=== PATIENT | male | born 1970 | race Caucasian/White ===

== ENCOUNTER 2019-11-16 07:52 | Outpatient (CLI) | payer OTHER, SELFPAY ==
--- NOTE | ~2019-11-16 | US_ITS ---
US right upper quadrant INDICATION: Right upper quadrant abdominal pain PROCEDURE: Realtime right upper abdominal ultrasound. COMPARISON: No prior studies for comparison. FINDINGS: The pancreas is normal without focal mass or pancreatic ductal dilation. Liver echotexture is normal without focal mass or intrahepatic biliary dilatation. There is normal directional flow i n the portal vein. The gallbladder is normal without stones, gallbladder wall thickening or pericholecystic fluid. Comm on bile duct measures 5.3 mm. No sonographic Lcement's sign. IMPRESSION: 1: Unremarkable limited abdominal ultrasound. Reviewed, dictated and finalized at location A.
== END 2019-11-16 07:53 | disposition home or self-care (01) ==
PROVIDERS: PCP Internal Medicine; Visit Provider Internal Medicine
DX: R10.11 Right upper quadrant pain (principal)
CPT/HCPCS: 76705

== ENCOUNTER 2020-05-17 10:18 | Outpatient (CLI) | payer OTHER, SELFPAY ==
[2020-05-17 11:19] LABS: Alanine Aminotransferase 30 U/L (16-63); Albumin Level 3.9 g/dL (3.4-5.0); Alkaline Phosphatase 70 U/L (46-116); Anion Gap 6 mmol/L (8-16); Aspartate Amino Transferase 13 U/L (15-37); Bilirubin,Total 0.3 mg/dL (0.00-1.00); Blood Urea Nitrogen 14 mg/dL (7-18); Calcium 9.3 mg/dL (8.5-10.1); Carbon Dioxide 31 mmol/L (21-32); Chloride 102 mmol/L (98-108); Estimated Glomerular Filt Rate > 60; Glucose 91 mg/dL (70-99); Osmolality Calculated 288 mOsm/kg (285-295); Potassium 4.7 mmol/L (3.5-5.1); Sodium 139 mmol/L (136-145); Total Protein 7.5 g/dL (6.4-8.2)
== END 2020-05-17 10:19 | disposition home or self-care (01) ==
LOC: CHSLAB 10:20
PROVIDERS: PCP Internal Medicine; Visit Provider Internal Medicine
DX: I10 Essential (primary) hypertension (principal)
CPT/HCPCS: 36415; 80053

== ENCOUNTER 2021-05-08 16:07 | Outpatient (CLI) | payer OTHER, SELFPAY ==
[2021-05-08 18:23] LABS: Influenza A QL RT-PCR Negative (Negative); Influenza B QL RT-PCR Negative (Negative); SARS-CoV-2 RNA PCR Negative (Negative)
== END 2021-05-08 16:08 | disposition home or self-care (01) ==
LOC: CHSLAB 16:11
PROVIDERS: PCP Internal Medicine; Visit Provider Internal Medicine
DX: R05.9 Cough, unspecified (principal); J02.9 Acute pharyngitis, unspecified; Z20.822 Contact with and (suspected) exposure to COVID-19
CPT/HCPCS: 87502; C9803; U0003; U0005

== ENCOUNTER 2021-11-17 11:32 | Outpatient (CLI) | payer OTHER, SELFPAY ==
[2021-11-17 11:48] LABS: Basophils Absolute Auto 0.05 K/mm3 (0.00-0.10); Basophils Percent Auto 0.7 % (0.0-1.0); Eosinophils Absolute Auto 0.19 K/mm3 (0.02-0.50); Eosinophils Percent Auto 2.6 % (1.0-6.0); Hematocrit 41.9 % (40.0-54.0); Hemoglobin 14.2 g/dL (14.0-18.0); Immature Granulocyte Absolute 0.01 K/mm3 (0.00-0.00); Immature Granulocyte Percent A 0.1 % (0.0-0.0); Lymphocytes Percent Auto 47.2 % (18.0-42.0); Mean Corpuscular HGB Conc 33.9 g/dL (32.0-36.0); Mean Corpuscular Hemoglobin 29.7 pg (27.0-31.0); Mean Corpuscular Volume 87.7 fL (78.0-102.0); Mean Platelet Volume 8.9 fl (8.7-11.0); Monocytes Absolute Auto 0.46 K/mm3 (0.10-0.90); Monocytes Percent Auto 6.4 % (2.0-11.0); Neutrophils Absolute Auto 3.1 K/mm3 (1.7-7.2); Platelet Count Result 340 K/mm3 (150-420); Red Blood Count 4.78 M/mm3 (4.70-6.10); White Blood Count 7.2 K/mm3 (4.8-10.8)
[2021-11-17 11:55] LABS: Add Urine Microscopic? NO; Appearance Urine Clear (Clear); Bilirubin Urine Negative (Negative); Blood Urine Negative (Negative); Color Urine Light Yellow (Yellow); Glucose Urine UA Negative (Negative); Ketones Urine Negative (Negative); Leukocyte Esterase Ur Negative (Negative); Nitrate Urine Negative (Negative); Protein Urine Negative (Negative); Specific Grav Ur 1.015 (1.010-1.020); Urobilinogen Urine 0.2 mg/dL (0.2-1.0)
[2021-11-17 13:32] LABS: Alanine Aminotransferase 27 U/L (16-63); Albumin Level 4.2 g/dL (3.4-5.0); Alkaline Phosphatase 69 U/L (46-116); Anion Gap 7 mmol/L (8-16); Aspartate Amino Transferase 15 U/L (15-37); Bilirubin,Total 0.4 mg/dL (0.00-1.00); Blood Urea Nitrogen 12 mg/dL (7-18); Calcium 9.3 mg/dL (8.5-10.1); Carbon Dioxide 29 mmol/L (21-32); Chloride 102 mmol/L (98-108); Cholesterol 176 mg/dL (0-200); Estimated Glomerular Filt Rate > 60; Glucose 103 mg/dL (70-99); HDL Direct 38 mg/dL (40-60); LDL Cholesterol Calculated 113 mg/dL (<130); Osmolality Calculated 285 mOsm/kg (285-295); Potassium 3.9 mmol/L (3.5-5.1); Sodium 138 mmol/L (136-145); Thyroid Stimulating Hormone 1.84 uIU/mL (0.36-3.74); Total Protein 7.6 g/dL (6.4-8.2); Triglycerides 125 mg/dL (0-150)
== END 2021-11-17 11:33 | disposition home or self-care (01) ==
LOC: CHSLAB 11:35
PROVIDERS: PCP Internal Medicine; Visit Provider Internal Medicine
DX: Z00.00 Encounter for general adult medical examination without abnormal findings (principal); I10 Essential (primary) hypertension
CPT/HCPCS: 36415; 80053; 80061; 81003; 84443; 85025

== ENCOUNTER 2022-06-23 10:18 | Outpatient (CLI) | payer OTHER, SELFPAY ==
--- NOTE | ~2022-06-23 | XR_ITS ---
EXAMINATION: XR lumbar spine 2-3V DATE: 06/23/2022 10:44 INDICATION: Low back pain. TECHNIQUE: 3 views of lumbar spine on 4 radiographs were obtained. COMPARISON: Lumbar spine radiograph 11/07/2008 FINDINGS: There is 4 degrees dextrocurvature of lumbar spine. Vertebral body heights are normal. Ther e is mildly decreased disc height at L3-L4 and L4-L5. There is multilevel mild facet joint osteoarthr itis. IMPRESSION: 1. Mild lumbar spondylosis. Reviewed, dictated and finalized at location A. CLEANER IMPRESSION: 1. Mild lumbar spondylosis.
== END 2022-06-23 10:19 | disposition home or self-care (01) ==
LOC: CHSIMG 10:21
PROVIDERS: PCP Internal Medicine; Visit Provider Internal Medicine
DX: M54.50 Low back pain, unspecified (principal); M43.06 Spondylolysis, lumbar region
CPT/HCPCS: 72100

== ENCOUNTER 2022-06-30 07:58 | Outpatient (RCR) | payer OTHER, SELFPAY ==
--- NOTE | 2022-06-30 08:58 | PTOPEVAL1 ---
Assessment and note entered by JT File, PT Evaluation Information Assessment Status Evaluation Diagnosis lumbago Onset 06/24/22 Subjective Information patient reports he had been having bouts of tightness in the lower back for a few days at a time over the past year. he reports this last bout has lasted about 1.5 weeks. he reports he has tried steroids and mm relaxors without relief of symptoms/pain. he reports he has increased pain with bending over to pick someting up. he reports if he is able to hold onto something he is ok, but without assistance the bending bothers him. he reports no MRI of the lower back. he reports he has no NTB in the legs. he reports the pain is the worst in the L side of the lower back. sitting too long does bother him, but short bouts of sitting are tolerable. he reports pain is sharp in the lower back when he is bending over. Reported Pain Level Pain Score 3: Self Report Assessment PT Clinical Summary mr. dietrich presents to skilled PT services for evaluation and treatment of lower back pain. he presents this date with signs and symptoms consistent with a discoid type injury to the lower back. he would benefit from skilled outpatient PT intervention to improve his objective/functional deficits and progress towards a return to his prior level functional activity performance and quality of life. Plan of Care Interventions Electrical Stimulation,Gait Training,Hot Pack/Cold Pack,Manual Therapy,Neuro Re-education,Patient/ Caregiver Educati,Therapeutic Activities, Therapeutic Exercise PT Services Indicated Yes Treatment Frequency and 3x weekly for 12 visits Duration These treatments will address the objective and functional deficits as defined above. The patient will be advanced safely and appropriately in order for the patient to progress towards his/her prior level of function. Additional exercises will be introduced and as well as a comprehensive home exercise program upon discharge, if needed, ?to ensure carryover of functional gains achieved in the clinic. This treatment plan has been reviewed and agreement upon by the patient.
--- NOTE | 2022-07-21 10:24 | PTOPPROG ---
Assessment and note entered by JT File, PT Evaluation Information Assessment Status Progress Diagnosis lumbago Onset 06/24/22 Subjective Information patient reports he continues to have pain in the lower back. he reports the pain has not changed much, but reports feeling a bit better on average at the end of the day. he reports he continues to feel worst when bending over. he reports decreased pain with standing, sitting, and leaning on objects to walk/stand. Assessment PT Clinical Summary mr. dietrich presents to skilled PT services for his 10th skilled therapy visit this date. although his pain remains high, he presents with improved wuality of life/decreased pain at the end of the day, and improved knee strength. he continues to require skilled PT to address his remaining deficits to achieve his skilled nursing therapy goals and return to prior level functional activity performance/quality of life. continued therapy will focus on modalities for pain modulation/ management and exercises/activities for increased strength, rom, standing, walking, lifting performance. Plan of Care Interventions Electrical Stimulation,Gait Training,Hot Pack/Cold Pack,Manual Therapy,Mechanical Traction,Neuro Re- education,Patient/Caregiver Educati,Therapeutic Activities,Therapeutic Exercise PT Services Indicated Yes Treatment Frequency and continue skilled PT per initial POC Duration These treatments will address the objective and functional deficits as defined above. The patient will be advanced safely and appropriately in order for the patient to progress towards his/her prior level of function. Additional exercises will be introduced and as well as a comprehensive home exercise program upon discharge, if needed, ?to ensure carryover of functional gains achieved in the clinic. This treatment plan has been reviewed and agreement upon by the patient.
--- NOTE | 2022-07-28 11:35 | PTOPDC ---
Assessment and note entered by JT File, PT Evaluation Information Assessment Status Discharge Diagnosis lumbago Onset 06/24/22 Subjective Information patient reports he continues to have the same pain he had when starting therapy. he reports he really has felt no improvement. he reports he does feel a little better leaving therapy and the rest of the night, but the pain is back by morning. he reports he avoids any bending and lifting activities due to pain. Reported Pain Level Pain Score 7: Self Report Assessment PT Clinical Summary mr. dietrich presents to skilled PT services for his 12th skilled PT visit. as of this date, he continues with high pain in the lower back, pain down the leg, and avoidance of bending/lifting activities. he has not been able to return to his prior level functional activity performance, and has not met any goals besides HEP performance. he will DC skilled PT as of this date, return to MD for MRI and follow up, and continue with HEP independent. Plan of Care Treatment Frequency and DC to MD and MRI, continue with HEP independent Duration
== END 2022-07-28 17:04 | disposition home or self-care (01) ==
LOC: CHSPT 07:58
PROVIDERS: PCP Internal Medicine; Visit Provider Internal Medicine
DX: M54.50 Low back pain, unspecified (principal)
CPT/HCPCS: 97012; 97014; 97110; 97140; 97161; G0283

== ENCOUNTER 2022-07-30 09:35 | Outpatient (CLI) | payer OTHER, SELFPAY ==
--- NOTE | ~2022-07-30 | MR_ITS ---
MRI of the lumbar spine Clinical History: Back pain Technique: Axial T2-weighted and T1-weighted images, and sagittal T1-weighted, T2-weighted, and T2 fa t-sat images were acquired. Findings: There is no fracture or subluxation of the lumbar spine. Vertebral bodies maintain normal h eight and alignment. No bone marrow signal abnormality seen. At L1-L2 and L2-L3, there is no disc bulge or herniation. There is minimal facet joint hypertrophy. N o spinal canal stenosis or neural foraminal narrowing at these levels. At L3-L4, there is minimal disc bulge with minimal facet joint hypertrophy. No franco spinal canal ericka nosis or neural foraminal narrowing. At L4-L5, there is minimal right paracentral to right foraminal disc bulge. There is mild facet arthr opathy. No spinal canal stenosis. No definite neural foraminal narrowing. At L5-S1, there is no disc bulge or herniation. There is minimal facet joint degenerative change. No spinal canal stenosis or neural foraminal narrowing. Paravertebral soft tissues are unremarkable. Impression: Minimal degenerative spondylosis, as detailed above. No franco spinal canal stenosis or definite neura l foraminal narrowing. Reviewed, dictated and finalized at location M. CH ENGINE OPTIMIZER Impression: Minimal degenerative spondylosis, as detailed above. No franco spinal canal sten osis or definite neural foraminal narrowing.
== END 2022-07-30 09:36 | disposition home or self-care (01) ==
LOC: CHSIMG 09:37
PROVIDERS: PCP Internal Medicine; Visit Provider Internal Medicine
DX: M54.50 Low back pain, unspecified (principal); M43.06 Spondylolysis, lumbar region
CPT/HCPCS: 72148

== ENCOUNTER 2023-10-01 08:29 | Outpatient (CLI) | payer OTHER, SELFPAY ==
--- NOTE | ~2023-10-01 | US_ITS ---
Limited Abdominal Sonogram: Real-time sonographic imaging of the right upper quadrant was performed. Clinical History: Epigastric pain Findings: The liver appears normal with no evidence of mass lesion or bile duct dilatation. The gall bladder is well distended, and appears normal with no evidence of gallstone or wall thickening. The c ommon bile duct measures 3 mm. The visualized pancreas, aorta, and IVC are unremarkable. Impression: No significant abnormality seen. Reviewed, dictated and finalized at location . Impression: No significant abnormality seen.
== END 2023-10-01 08:30 | disposition home or self-care (01) ==
LOC: CHSIMG 08:33
PROVIDERS: PCP Internal Medicine; Visit Provider Internal Medicine
DX: R10.13 Epigastric pain (principal)
CPT/HCPCS: 76705

== ENCOUNTER 2023-10-22 07:44 | Outpatient (CLI) | payer OTHER, SELFPAY ==
--- NOTE | ~2023-10-22 | CT_ITS ---
CT of the Abdomen and Pelvis: Indication: Abdominal pain Technique: 2.5 mm axial scans were obtained through the abdomen and pelvis following intravenous adm inistration of 100 cc of Omnipaque 350. Dose reduction technique was used on this scan by utilizing a utomated exposure control and iterative reconstruction technique. The dose-length product (DLP) was 8 88.79 mGy-cm. Findings: Scans through the lung bases are unremarkable. The liver, spleen, pancreas, gallbladder, adrenals and kidneys are within normal limits. There are at herosclerotic calcifications of the aorta. No lymphadenopathy. No bowel obstruction or bowel wall thickening. There is no evidence to suggest acute appendicitis. Images through the pelvis were performed. Urinary bladder unremarkable. No pelvic mass seen. Small fa t-containing left inguinal hernia present. No ascites. Impression: Small fat-containing left inguinal hernia. Reviewed, dictated and finalized at [facility]. Impression: Small fat-containing left inguinal hernia.
[2023-10-22 08:13] LABS: Estimated Glomerular Filt Rate > 60
== END 2023-10-22 07:45 | disposition home or self-care (01) ==
LOC: CHSIMG 07:46
PROVIDERS: PCP Internal Medicine; Visit Provider Surgery
DX: K40.90 Unilateral inguinal hernia, without obstruction or gangrene, not specified as recurrent (principal); R10.11 Right upper quadrant pain
CPT/HCPCS: 74177; Q9967

== ENCOUNTER 2023-11-11 08:25 | Outpatient (CLI) | payer OTHER, SELFPAY ==
--- NOTE | 2023-11-11 08:34 | ECG_ITS ---
[facility] [address] Test Date: 2023-11-11 Pat Name: Robby Obando Department: Room: Gender: M Administration Assistant: : 1970 Requested By: Brigido Staton Order Number: [id number] Arleen MD: Stevie Mcrae M.D. Measurements Intervals Roebling Rate: 61 P: 43 SC: 189 QRS: -4 QRSD: 119 T: 16 QT: 398 QTc: 403 Interpretive Statements SINUS RHYTHM MODERATE INTRAVENTRICULAR CONDUCTION DELAY [110+ ms QRS DURATION] No previous ECG available for comparison Electronically Signed On 11-11-2023 13:46:22 CDT by Stevie Mcrae M.D.
[2023-11-11 09:11] LABS: Anion Gap 5 mmol/L (4-12); Blood Urea Nitrogen 20 mg/dL (9-20); Calcium 9.3 mg/dL (8.4-10.2); Carbon Dioxide 29 mmol/L (22-30); Chloride 105 mmol/L (98-107); Estimated Glomerular Filt Rate > 60; Glucose 90 mg/dL (65-110); Potassium 4.3 mmol/L (3.4-5.0); Sodium 139 mmol/L (137-145)
== END 2023-11-11 08:26 | disposition home or self-care (01) ==
LOC: ANHSURGERY 08:30
PROVIDERS: Anesthesiology; PCP Internal Medicine; Visit Provider Surgery
DX: Z01.818 Encounter for other preprocedural examination (principal); Z79.899 Other long term (current) drug therapy; I10 Essential (primary) hypertension; K40.90 Unilateral inguinal hernia, without obstruction or gangrene, not specified as recurrent
CPT/HCPCS: 36415; 80048; 86850; 86900; 86901; 93005

== ENCOUNTER 2023-11-23 00:36 | Day surgery (SDC) | payer OTHER, SELFPAY ==
[2023-11-09 14:41] VITALS: BMI 30.4
--- NOTE | 2023-11-09 14:49 | PC.NURSE ---
Report to the Outpatient Waiting Room, entrance under the green pavilion located off [facility], at time _0730_ on date _[id number]_. Planned Procedure Time: _0930_. Time changes happen often and if your time is changed the preop area will call you the afternoon before. - You and your visitor will be asked to self-screen and do not enter if you have any COVID symptoms. - A mask is optional within the hospital at this time. Patients may have clear liquids (water, carbonated beverages, clear teas, apple juice) until 3 hours prior to surgery with a maximum of 20 ounces. - No food from midnight until time of surgery Take the following medications with a SIP of water the morning of surgery: __None DO NOT STOP ANY OF YOUR OTHER PRESCRIPTION MEDICATIONS PRIOR TO SURGERY ?EXCEPT THE FOLLOWING Medications to discontinue per physician ____Move free Date to take last wbod__[id number] Please no make-up, nail georgian, hairspray, perfume, deodorant, or body powder the day of surgery. No jewelry (including any body piercings) or valuables the day of surgery, leave them at home. Please take a shower or bath the night before, or the morning of, surgery with an antibacterial soap. Wear comfortable, loose fitting clothing. - Jewelry must be removed prior to entering the operating room. Rings and piercings that are not removed may be cut off. - The hospital will not accept responsibility for valuables. - Please leave all valuables, including medications, at home the day of surgery. If you are going home after surgery, a licensed route delivery driver must drive you home. - NO public transportation without another adult if you receive anesthesia. - We recommend that an adult stay with you for 24 hours following discharge. - We also recommend that you do not drive, make important decision, drink alcoholic beverages, or take any drugs that were not prescribed by your health care provider for at least 24 hours after your discharge time. Follow any additional instructions given to you from your surgeon. If you or anyone in your household have experienced Covid symptoms in the past week, please notify your surgeon or the nurse liaison at the phone number below for possible testing. Telephone instructions given to __Dave__and asked if any additional questions and then verbalized understanding. Patient advised to call surgeon office or pre surgery nurse liaison [phone] if any additional questions.
[2023-11-23] VITALS (7 sets, daily range): BP systolic 121–139; BP diastolic 63–77; PULSE 58–91; RESP 12–18; TEMP 36.3–36.9; O2SAT 96–100; BMI 29.9
[2023-11-23] MEDS: LACTATED RINGERS 1,000 ML 30 ML IV CONT ×2 (08:00→10:53)
[2023-11-23] MEDS: ACETAMINOPHEN 500 MG TABLET 1000 MG PO (08:07)
[2023-11-23] MEDS: KETOROLAC 15 MG/ML VIAL (*BKC) IV PUSH (08:08)
--- NOTE | 2023-11-23 08:37 | WPDANESEPPF ---
Anes - Initial Pre Proc Eval Procedure: Operation Date: 11/23/23 09:30 Proposed Procedures p Laparoscopic Left Inguinal Hernia Repair with Mesh, Davinci Assisted - Jm Jacques DO Date/Time: 11/23/23 08:37 Surgeon: Jm Jacques DO Pre Op Diagnosis: left inguinal hernia Patient Data Age: 52 Gender: M Height: 1.85 m Weight: 103 kg Last Vital Signs Temp 36.9 C 11/23/23 07:35 Pulse 65 11/23/23 07:35 Resp 14 11/23/23 07:35 BP 123/73 11/23/23 07:35 Pulse Ox 98 11/23/23 07:35 O2 Del Method Room Air 11/23/23 07:35 Allergies Allergy/AdvReac Type Severity Reaction Status Date / Time No Known Allergies Allergy Verified 11/23/23 08:11 Home Medications Medication Instructions Recorded Confirmed Type esomeprazole magnesium 20 mg 20 mg PO DAILY 10/08/23 11/09/23 History capsule,delayed release (Nexium) irbesartan 150 1 tablet PO DAILY 10/08/23 11/09/23 History mg-hydrochlorothiazide 12.5 mg tablet tamarind seed extract and turmeric 1 tablet PO DAILY 11/09/23 11/23/23 History root extract 250 mg tablet (Move Free Ultra Turmeric-Tamarind) Patient hx anesthesia problems: none Family hx anesthesia problems: none Results Review: All pre-operative results and documents have been reviewed as part of the pre-operative evaluation. [facility] Past Medical History Medical History (Updated 11/23/23 @ 08:37 by Georges Salmon MD) HTN (hypertension) Surgical History Surgical History Hx of ventral hernia repair [address] Jacques Family History Family History Mother Hypertension Social History Social History Smoking packs per day: 1 Smoking cigarettes per day: 20.0 Years smoked: 30 Smoking pack-years: 30.00 Smoking status: Former smoker Tobacco type: cigarettes Smoking end date: 04/10/22 Alcohol intake: current Do You Feel Safe in your Home?: Yes Lack of Transportation: No Lack of Food: Never True Current Housing: I Have Housing Concerned About Future Housing: No Difficulty Paying Gas/Electric Bills: No Difficulty Paying for Meds: No Currently Unemployed: No Education: Associate Degree Difficulty w/ Childcare or Family Care: No Living arrangements: with family Spiritual care concerns: No Anes - Eval Final PreProcedure Day of Procedure 11/23/23 08:37 Patient weight: obese Heart: regular rate and rhythm Lungs: clear to auscultation Airway: Mallampati scale class II Neurological: alert and oriented Last oral intake: >/= 8 hours ASA classification: III Emergent: no Anesthetic plan: proceed Anesthesia type and monitoring: general ETT and standard monitoring Results Review: All pre-operative results and documents have been reviewed as part of the pre-operative evaluation. Informed Consent: The patient's anesthetic plan and its attendant risks and benefits were discussed with the patient/family/POA. Questions were solicited and answers provided to the satisfaction of the patient/family/POA.
--- NOTE | 2023-11-23 09:04 | PM.IMHP ---
H&P: HPI History of Present Illness Date/Time: 11/23/23 09:04 Chief Complaint: Left inguinal hernia Narrative: This is a 52-year-old man who presents for left inguinal hernia repair. He has a history of open umbilical hernia repair with mesh and was initially noticing some abdominal pain superior to his umbilicus. He did also get some occasional left groin pain. CT of his abdomen and pelvis was obtained and this showed no evidence of recurrent hernia near the umbilicus, but he did have a small fat containing left inguinal hernia. The patient states that he does feel pain occasionally in this region and did want to proceed with repair. Review of Systems Review of Systems: All systems reviewed & are unremarkable except as noted in HPI and below Constitutional: Constitutional: Denies chills, Denies fever(s), Denies headache(s) and Denies weight loss Eyes: Eyes: Denies change in vision ENT: Denies dizziness, Denies headache(s), Denies neck mass and Denies throat swelling Cardiovascular: Cardiovascular: Denies chest pain, Denies lightheadedness and Denies dyspnea Respiratory: Respiratory: Denies cough, Denies dyspnea and Denies wheezing Gastrointestinal: Gastrointestinal: Denies abdominal pain, Denies change in bowel habits, Denies nausea and Denies vomiting Genitourinary: Genitourinary: Denies hematuria and Denies dysuria Musculoskeletal: Musculoskeletal: Reports as per HPI Integumentary/Breasts: Skin/Breast: Reports as per HPI Neurologic: Denies dizziness and Denies headache(s) Allergic/Immunologic: Allergic/Immunologic: Denies throat swelling and Denies wheezing [facility] Past Medical History Medical History (Updated 11/23/23 @ 09:06 by Jm Jacques DO) HTN (hypertension) Surgical History Surgical History Hx of ventral hernia repair [address] Jacques Family History Family History Mother Hypertension Social History Social History Smoking packs per day: 1 Smoking cigarettes per day: 20.0 Years smoked: 30 Smoking pack-years: 30.00 Smoking status: Former smoker Tobacco type: cigarettes Smoking end date: 04/10/22 Alcohol intake: current Do You Feel Safe in your Home?: Yes Lack of Transportation: No Lack of Food: Never True Current Housing: I Have Housing Concerned About Future Housing: No Difficulty Paying Gas/Electric Bills: No Difficulty Paying for Meds: No Currently Unemployed: No Education: Associate Degree Difficulty w/ Childcare or Family Care: No Living arrangements: with family Spiritual care concerns: No Meds Home Medications and Allergies Home Medications Medication Instructions Recorded Confirmed Type esomeprazole magnesium 20 mg 20 mg PO DAILY 10/08/23 11/09/23 History capsule,delayed release (Nexium) irbesartan 150 1 tablet PO DAILY 10/08/23 11/09/23 History mg-hydrochlorothiazide 12.5 mg tablet tamarind seed extract and turmeric 1 tablet PO DAILY 11/09/23 11/23/23 History root extract 250 mg tablet (Move Free Ultra Turmeric-Tamarind) Allergies Allergy/AdvReac Type Severity Reaction Status Date / Time No Known Allergies Allergy Verified 11/23/23 08:11 Vital Signs Vital Signs - 24 hr 11/23/23 07:35 Temperature 36.9 C Pulse Rate 65 Respiratory Rate 14 Blood Pressure 123/73 Pulse Oximetry 98 Oxygen Delivery Room Air Exam Const: General: no acute distress and alert Orientation/consciousness: patient oriented x3 HENMT: Head: normocephalic and atraumatic Ears: hearing grossly normal bilaterally Face/Nose/Sinus: Normal nares present Mouth: Yes Normal oral and palatal mucosa present Eyes: Periorbital: periorbital findings normal Sclera: sclerae normal EOM: EOMs intact bilaterally Neck: Neck: normal visual inspection, no lymph
--- NOTE | 2023-11-23 09:09 | WPDHPUPDATE1 ---
History and Physical Update Update Date/Time: 11/23/23 09:09 History and Physical has been reviewed, including an updated exam of the patient. There are NO changes in the patient's condition. Risks, benefits, and alternatives have been discussed and questions answered. Patient agrees to proceed with procedure.
[2023-11-23] MEDS: ceFAZolin 2 GM/D5W 50 ML 2 GM/50 ML BAG IVPB (09:48)
[2023-11-23] MEDS: BUPIVACAINE/EPINEPHRINE 0.5% 50 ML VIAL 30 ML INFILTRATE (10:16)
--- NOTE | 2023-11-23 10:55 | W.PM.PROC2 ---
Procedure Note - Detailed Date of Procedure 11/23/23 Pre-op Diagnosis left inguinal hernia Post-op Diagnosis Same (Indirect LIH) Procedure Performed Laparoscopic left inguinal hernia repair with mesh, da Wade assisted Surgeon Jm Jacques, Anesthesia General and Local (0.5% bupivacaine with epinephrine) Indications This is a 52-year-old man who presented with left groin pain intermittently over the past several months. He was initially seen for right upper quadrant abdominal wall pain and had a history of umbilical hernia repair with mesh. A CT was obtained to assess for any potential for recurrent hernia but no recurrent hernia in the mid or upper abdomen was identified. He was however found to have a small fat containing left inguinal hernia. Discussions were made with the patient about treatment options and decision was made to proceed with robotic assisted laparoscopic left inguinal hernia repair with mesh. Findings Laparoscopic left inguinal hernia repair was performed. The patient was found to have a small indirect left inguinal hernia. A robotic transabdominal preperitoneal approach was utilized for repair. A large left 3DMax mid mesh was placed overlying the entire left myopectineal orifice. No other intra-abdominal abnormalities were identified. No abnormalities were identified in the right upper quadrant the location of his abdominal pain and there was no evidence of a right inguinal hernia. Description of Procedure Procedure as well as risks, benefits, and alternatives were discussed with the patient. Written consent was obtained and placed in chart prior to procedure. Patient was brought back to surgical suite. He was placed supine on operating table. Time-out was done to confirm patient and procedure. He was then intubated by Anesthesia Department. His abdomen was prepped and draped in sterile fashion using chlorhexidine prep. 0.5% bupivacaine with epinephrine was infiltrated at each location for incision. An 8 mm incision was made in the left lateral abdomen, and a 5 mm Optiview trocar was advanced through the abdominal layers under direct visualization. Once inside the abdominal cavity, carbon dioxide insufflation was used to create a pneumoperitoneum. A camera was inserted and the abdominal cavity was inspected. The patient was placed in slight Trendelenburg position. An 8 millimeter incision was made on the right lateral abdomen and an 8 millimeter trocar was inserted under direct visualization. Another 8 millimeter incision was made just superior to the umbilicus and an 8 millimeter trocar was inserted under direct visualization. The 5 mm port was then removed and this was replaced with another 8 mm robotic port. The robotic arms were brought up to the patient's bedside and secured to the ports. The camera and instruments were inserted. I then moved over to the robotic console and took control of the camera and instruments. After careful inspection of the abdominal cavity, I began scoring the peritoneum along the left lower quadrant using scissors with electrocautery. The preperitoneal plane was entered and this was carefully dissected caudally along the inferior epigastric vessels. Careful dissection with scissors with electrocautery and blunt dissection was used to continue this dissection. I dissected far enough laterally to allow for mesh placement, and also dissected medially to identify the pubic arch and Lazarus's ligament. The hernia sac was identified and carefully dissected posteriorly. The cord contents were also identified and the peritoneum was carefully dissected far enough posteriorly to allow for mesh placement. Once an adequate pocket was created, I then placed the mesh within the preperitoneal pocket and carefully unfolded it. The mesh was centered on the hernia defect with adequate overlap circumferentially. The inferior edge of the mesh was inspected to ensure that it was far enough away from the p
[2023-11-23] MEDS: fentaNYL CITRATE INJ (*CRX) 100 MCG/2 ML VIAL 25 MCG IV PUSH ×3 (11:05→11:22)
[2023-11-23] MEDS: oxyCODONE HCL (*CRX) 5 MG TAB IR PO (11:58)
== END 2023-11-23 12:04 | disposition home or self-care (01) ==
PROVIDERS: PCP Internal Medicine; Visit Provider Surgery
PROC: 8E0Y4CZ Robotic Assisted Procedure of Lower Extremity, Percutaneous Endoscopic Approach (ICD-10-PCS; CPT 49650; principal; 2023-11-23 09:30)
DX: K40.90 Unilateral inguinal hernia, without obstruction or gangrene, not specified as recurrent (principal); I10 Essential (primary) hypertension; Z87.891 Personal history of nicotine dependence
CPT/HCPCS: 49650; S2900; 36415; 80048; 86850; 86900; 86901; 93005; A9270; C1781; J0690; J1100; J1596; J1885; J2250; J2405; J2704; J3010; J7120

== ENCOUNTER 2024-03-29 10:43 | Outpatient (CLI) | payer OTHER, SELFPAY ==
[2024-03-29 11:02] LABS: Basophils Absolute Auto 0.04 K/mm3 (0.00-0.10); Basophils Percent Auto 0.6 % (0.0-1.0); Eosinophils Absolute Auto 0.15 K/mm3 (0.02-0.50); Eosinophils Percent Auto 2.4 % (1.0-6.0); Hematocrit 40.5 % (40.0-54.0); Hemoglobin 13.6 g/dL (14.0-18.0); Immature Granulocyte Absolute 0.02 K/mm3 (0.00-0.00); Immature Granulocyte Percent A 0.3 % (0.0-0.0); Lymphocytes Absolute Auto 2.37 K/mm3 (1.10-4.50); Lymphocytes Percent Auto 37.9 % (18.0-42.0); Mean Corpuscular HGB Conc 33.6 g/dL (32-36); Mean Corpuscular Hemoglobin 30.5 pg (27.0-31.0); Mean Corpuscular Volume 90.8 fL (78.0-102.0); Mean Platelet Volume 8.9 fl (8.7-11.0); Monocytes Absolute Auto 0.46 K/mm3 (0.10-0.90); Monocytes Percent Auto 7.3 % (2.0-11.0); Neutrophils Absolute Auto 3.22 K/mm3 (1.70-7.20); Neutrophils Percent Auto 51.5 % (50.0-70.0); Platelet Count Result 323 K/mm3 (150-420); Red Blood Count 4.46 M/mm3 (4.70-6.10); Red Cell Distribution Width 12.7 % (11.6-14.4); White Blood Count 6.3 K/mm3 (4.8-10.8)
[2024-03-29 11:04] LABS: Add Urine Microscopic? NO; Appearance Urine Clear (Clear); Bilirubin Urine Negative (Negative); Blood Urine Negative (Negative); Color Urine Light Yellow (Yellow); Glucose Urine UA Negative (Negative); Ketones Urine Negative (Negative); Leukocyte Esterase Ur Negative (Negative); Nitrate Urine Negative (Negative); Protein Urine Negative (Negative); Specific Grav Ur 1.015 (1.010-1.020); Urobilinogen Urine 0.2 mg/dL (0.2-1.0)
[2024-03-29 11:47] LABS: Alanine Aminotransferase 36 U/L (16-63); Albumin Level 4.1 g/dL (3.4-5.0); Alkaline Phosphatase 54 U/L (46-116); Anion Gap 7 mmol/L (4-12); Aspartate Amino Transferase 22 U/L (15-37); Bilirubin,Total 0.5 mg/dL (0.00-1.00); Blood Urea Nitrogen 17 mg/dL (7-18); Calcium 9.4 mg/dL (8.5-10.1); Carbon Dioxide 32 mmol/L (21-32); Chloride 103 mmol/L (98-108); Cholesterol 165 mg/dL (0-200); Estimated Glomerular Filt Rate > 60; Glucose 87 mg/dL (70-99); HDL Direct 50 mg/dL (40-60); LDL Cholesterol Calculated 105 mg/dL (<130); Osmolality Calculated 294 mOsm/kg (285-295); Potassium 4.4 mmol/L (3.5-5.1); Sodium 142 mmol/L (136-145); Triglycerides 52 mg/dL (0-150)
== END 2024-03-29 10:44 | disposition home or self-care (01) ==
LOC: CHSLAB 10:45
PROVIDERS: PCP Internal Medicine; Visit Provider Internal Medicine
DX: R10.11 Right upper quadrant pain (principal); I10 Essential (primary) hypertension
CPT/HCPCS: 36415; 80053; 80061; 81003; 84443; 85025

== ENCOUNTER 2024-04-06 08:37 | Outpatient (CLI) | payer OTHER, SELFPAY ==
--- NOTE | ~2024-04-06 | NM_ITS ---
EXAMINATION: NM hepatobiliary w pharm DATE: 04/06/2024 10:34 INDICATION: Recently worsening right upper quadrant abdominal pain COMPARISON: None. TECHNIQUE: 6.4 mCi Tc-99m mebrofenin (Choletec) was administered intravenously. Scintigraphic images of the abdomen were obtained for one hour. 1.9 mcg sincalide (Kinevac) was administered by slow intr avenous infusion, and imaging was continued for 30 minutes. Gallbladder ejection fraction was calcula elizabeth by the technologist. FINDINGS: There is normal clearance of radiotracer from the blood pool. There is homogeneous tracer uptake by t he liver. Activity progresses to the gallbladder and bowel. The gallbladder ejection fraction (GBEF) is 66% (normal 10-90%, but most patient with gallbladder dysfunction have GBEF < 35% which does over lap with the normal range). IMPRESSION: 1. Normal hepatobiliary scan Reviewed, dictated and finalized at location A.
== END 2024-04-06 08:38 | disposition home or self-care (01) ==
PROVIDERS: PCP Internal Medicine; Visit Provider Internal Medicine
DX: R10.11 Right upper quadrant pain (principal); I10 Essential (primary) hypertension
CPT/HCPCS: 78227; A9537; J2805

== ENCOUNTER 2024-05-18 09:26 | Outpatient (CLI) | payer OTHER, SELFPAY ==
--- NOTE | ~2024-05-18 | CT_ITS ---
CT Scan of the Chest without Contrast: Clinical Indication: Lung cancer screening, nicotine dependence Technique: Contiguous sections were acquired throughout the chest without intravenous contrast. Dose reduction technique was used on this scan by utilizing automated exposure control and iterative recon struction technique. The dose-length product (DLP) was 131.15 mGy-cm. Findings: There is no evidence of any significant mediastinal, hilar or axillary lymphadenopathy. Coronary shoshana ry calcification are present. There is no evidence of pleural or pericardial effusion. The lungs are clear. No pulmonary nodules or infiltrates are noted. Images through the upper abdomen reveal no abnormalities. Impression: Lung RADS 1: Negative. 12 month follow-up screening CT advised. Reviewed, dictated and finalized at location . RONMENTAL MANAGER Impression: Lung RADS 1: Negative. 12 month follow-up screening CT advised.
--- NOTE | ~2024-05-18 | MR_ITS ---
EXAMINATION: MR brain/brain stem wo con DATE: 05/18/2024 10:13 INDICATION: Headache. TECHNIQUE: Magnetic resonance imaging (MRI) of the brain and brainstem was performed without intraven ous contrast. COMPARISON: None. FINDINGS: There is no intracranial hemorrhage, acute infarction, or abnormal intracranial mass lesion . There are a few foci of nonspecific increased T2-weighted signal intensity in the cerebral white ma tter, which is within normal limits for the patient's age. The ventricles are normal in size. The orb its are normal. The mastoid air cells are normal. The paranasal sinuses are clear. IMPRESSION: 1. Normal aging brain. Reviewed, dictated and finalized at location A. IERY CLERK IMPRESSION: 1. Normal aging brain.
== END 2024-05-18 09:27 | disposition home or self-care (01) ==
LOC: CHSIMG 09:30
PROVIDERS: PCP Internal Medicine; Visit Provider Internal Medicine
DX: Z12.2 Encounter for screening for malignant neoplasm of respiratory organs (principal); Z87.891 Personal history of nicotine dependence; R51.9 Headache, unspecified
CPT/HCPCS: 70551; 71271

== ENCOUNTER 2024-06-17 07:27 | Outpatient (CLI) | payer OTHER, SELFPAY ==
--- NOTE | ~2024-06-17 | MR_ITS ---
MRI of the cervical spine Clinical History: Cervicalgia Technique: Axial T2-weighted and gradient images, and sagittal T1-weighted, T2-weighted, and STIR alan ges were acquired. Findings: There is no fracture or subluxation of the cervical spine. Vertebral bodies maintain normal height and alignment. No bone marrow signal abnormality seen. At C2-C3, there is tiny disc bulge. No spinal canal stenosis, cord compression, or neural foraminal n arrowing. At C3-C4, there is minimal disc osteophyte convex. No canal stenosis, cord compression, or definite n eural foraminal narrowing. At C4-C5, there is no significant disc bulge or herniation. There is mild facet arthropathy bilateral ly. No canal stenosis, cord compression, or neural foraminal narrowing. At C5-C6, there is minimal disc osteophyte complex. No spinal canal stenosis or cord compression. No definite neural foraminal narrowing. At C6-C7, there is minimal disc bulge. No spinal canal stenosis, cord compression, or neural foramina l narrowing. No abnormal signal seen in the spinal cord. Paravertebral soft tissues are unremarkable. Impression: Minimal degenerative changes, as above. Reviewed, dictated and finalized at location M. JERKER Impression: Minimal degenerative changes, as above.
== END 2024-06-17 07:28 | disposition home or self-care (01) ==
LOC: ANHIMG 07:31
PROVIDERS: PCP Internal Medicine; Visit Provider Nurse Practitioner Family
DX: M54.2 Cervicalgia (principal)
CPT/HCPCS: 72141

== ENCOUNTER 2025-01-11 07:22 | Outpatient (CLI) | payer OTHER, SELFPAY ==
--- OUTSIDE RECORDS SUMMARY | 2025-01-11 07:27 | XMS_ITS | Clinical Summary ---
Author Organization [facility] Address [facility] [place] [address] Care Team Providers Care Premises Technician Name Role Phone Unavailable Primary Care Provider Unavailabl e Social History Tobacco Use Types Packs/Day Years Used Date Smoking Tobacco: Never Assessed Sex and Gender Information Value Date Recorded Sex Assigned at Not on file Legal Sex Male 5:58 PM CDT Gender Identity Not on file Sexual Orientation Not on file Last Filed Vital Signs Vital Sign Reading Time Taken Comments Blood Pressure 160/116 03/12/2017 11:03 AM CDT Pulse 81 03/12/2017 10:02 AM CDT Temperature - - Respiratory Rate - - Oxygen Saturation - - Inhaled Oxygen Concentration - - Weight 119.7 kg (264 lb) 03/12/2017 10:02 AM CDT Height 185.4 cm (6' 1) 03/12/2017 10:02 AM CDT Body Mass Index 34.83 03/12/2017 10:02 AM CDT Plan of Treatment Health Maintenance Due Date Last Done Comments Colorectal Cancer Screening Colonoscopy (10 Years) 1971 Annual Physical 12/04/1974 Hepatitis C 12/04/1989 DTaP, Tdap and Td Vaccines ( 1 - Tdap) 12/04/1990 Hepatitis B Vaccines (1 of 3 - 19+ 3-dose series) 12/04/1990 Pneumococcal Vaccine: 50+ Ye ars (1 of 1 - PCV) 12/04/2021 Zoster Vaccines (1 of 2) 12/04/2021 COVID-19 Vaccine ( - 2023-2 5 season) 2024 Meningococcal B Vaccine Aged Out No l onger eligible based on patient's age to complete this topic Meningococcal Vaccine Aged Out No kvng bandar eligible based on patient's age to complete this topic RSV Immunizations Under 20 Months Aged Out No longer eligible based on patient's age to complete this topic Insurance [employer]
--- OUTSIDE RECORDS SUMMARY | 2025-01-11 07:28 | XMS_ITS | Continuity of Care Document ---
Author Organization [facility] Address [address] [place] [address] [place] [address] Phone Care Team Providers Care Extraction Supervisor Name Role Phone Brandon Davies MD Unavailable Unavailable Advance Directives Directive Yes / No Effective Date File Name No Information Encounters Encounter Description Practice Location Reason(s) For Visit Diagnoses Date Provider Providers Copied on Encounter [facility], [address], [place], [place], [id number], [place] tel:[phone] [address] [place] Professional No Information [address] [facility], [address], [place], [place], [id number], [place]. tel:[phone] Family History Family Member Type Diagnosis Age At Onset No Information Payers Payer name Insurance type Covered constitution party ID Authoriza tion(s) [employer] SOI CI [id number] Social History Type Description Quantity Date Captured [...]
[2025-01-12 07:09] LABS: LH 5.3 mIU/mL (1.7-8.6)
== END 2025-01-11 07:23 | disposition home or self-care (01) ==
LOC: CHSLAB 07:25
PROVIDERS: PCP Internal Medicine; Visit Provider Internal Medicine
DX: E29.1 Testicular hypofunction (principal)
CPT/HCPCS: 83002

== ENCOUNTER 2025-01-17 07:18 | Outpatient (CLI) | payer OTHER, SELFPAY ==
[2025-01-17 07:34] LABS: Hematocrit 40.5 % (40.0-54.0); Hemoglobin 13.5 g/dL (14.0-18.0); Mean Corpuscular HGB Conc 33.3 g/dL (32-36); Mean Corpuscular Hemoglobin 30.3 pg (27.0-31.0); Mean Corpuscular Volume 91.0 fL (78.0-102.0); Platelet Count Result 300 K/mm3 (150-420); Red Blood Count 4.45 M/mm3 (4.70-6.10); White Blood Count 6.1 K/mm3 (4.8-10.8)
[2025-01-17 07:35] LABS: Add Urine Microscopic? NO; Appearance Urine Clear (Clear); Glucose Urine UA Negative (Negative); Leukocyte Esterase Ur Negative (Negative); Nitrate Urine Negative (Negative); Specific Grav Ur 1.015 (1.010-1.020)
[2025-01-17 08:07] LABS: Alanine Aminotransferase 33 U/L (6-50); Albumin Level 4.8 g/dL (3.5-5.1); Alkaline Phosphatase 49 U/L (38-126); Anion Gap 5 mmol/L (4-12); Aspartate Amino Transferase 36 U/L (17-59); Bilirubin,Total 0.6 mg/dL (0.2-1.3); Blood Urea Nitrogen 21 mg/dL (9-20); CRP < 0.5 mg/dL (<1.0); Calcium 9.9 mg/dL (8.4-10.2); Carbon Dioxide 30 mmol/L (22-30); Chloride 104 mmol/L (98-107); Cholesterol 185 mg/dL (0-200); Estimated Glomerular Filt Rate > 60; Glucose 89 mg/dL (65-110); HDL Direct 60 mg/dL; Osmolality Calculated 290 mOsm/kg (285-295); Potassium 4.1 mmol/L (3.4-5.0); Sodium 139 mmol/L (137-145); Total Protein 7.1 g/dL (6.3-8.2); Triglycerides 53 mg/dL (<150)
[2025-01-17 08:35] LABS: Thyroid Stimulating Hormone 0.645 uIU/mL (0.465-4.680)
[2025-01-17 17:13] LABS: Prostate Specific Antigen 0.3 ng/mL (< OR = 4.0)
== END 2025-01-17 07:19 | disposition home or self-care (01) ==
LOC: CHSLAB 07:20
PROVIDERS: PCP Internal Medicine; Visit Provider Internal Medicine
DX: Z00.00 Encounter for general adult medical examination without abnormal findings (principal); I10 Essential (primary) hypertension; M54.50 Low back pain, unspecified
CPT/HCPCS: 36415; 80053; 80061; 81003; 84153; 84443; 85027; 86140; G0103

== ENCOUNTER 2025-02-24 09:42 | Outpatient (CLI) | payer OTHER, SELFPAY ==
--- OUTSIDE RECORDS SUMMARY | 2001-08-04 03:30 | XMS_ITS | Continuity of Care Document ---
Author Organization [facility] Address [address] [place] [address] [place] [address] Phone Care Team Providers Care Survey Project Manager Name Role Phone Brandon Davies MD Unavailable Unavailable Advance Directives Directive Yes / No Effective Date File Name No Information Encounters Encounter Description Practice Location Reason(s) For Visit Diagnoses Date Provider Providers Copied on Encounter [facility], [address] [place], [place], [id number], [place] tel:[phone] [address] [facility] Professional No Information [address]. [address] [facility], [address], [place], [place], [id number], [place]. tel:[phone] Family History Family Member Type Diagnosis Age At Onset No Information Payers Payer name Insurance type Covered constitution party ID Authoriza tion(s) [employer] SOI CI [id number] Social History Type Description Quantity Date Captured Comments Sex Male Smoking Status No Information Chief Complaint And Reason For Visit No Information Reason For Referral Reason For Referral No Information History Of Present Illness Encounter Date Complaint History Of Prese nt Illness No Information Functional Status Date Functional Assessmen t No Information Instructions Date Instruction Additional Infor mation No Information Assessments Type Assessment Date No Information Patient Care Teams Name Effective Dates (start - stop) Status Members No Information
--- NOTE | ~2025-02-24 | MR_ITS ---
EXAMINATION: MR pelvis wo/w con DATE: 02/24/2025 10:34 INDICATION: Right lower quadrant abdominal pain. TECHNIQUE: Magnetic resonance imaging (MRI) of the pelvis was performed without and with 20 mL MultiHance intravenous contrast. COMPARISON: CT abdomen and pelvis 10/22/2023 FINDINGS: There are changes of left inguinal hernia repair. There is no right inguinal hernia. There are no dilated loops of bowel. The prostate is mildly enlarged. There is no ascites. There are no pathologically enlarged lymph nodes. There is osteonecrosis in right femoral head. There is mild osteoarthritis of the hips. There is mild lumbar spondylosis. IMPRESSION: 1. Osteonecrosis of right femoral head. Mild osteoarthritis of the hips. Reviewed, dictated and finalized at location E.
== END 2025-02-24 09:43 | disposition home or self-care (01) ==
LOC: CHSIMG 09:44
PROVIDERS: PCP Internal Medicine; Visit Provider Surgery
DX: M87.9 Osteonecrosis, unspecified (principal); M16.0 Bilateral primary osteoarthritis of hip; R10.31 Right lower quadrant pain; R10.33 Periumbilical pain; Z87.19 Personal history of other diseases of the digestive system; Z98.890 Other specified postprocedural states
CPT/HCPCS: 72197; A9577

== ENCOUNTER 2025-04-23 08:50 | Outpatient (RCR) | payer OTHER, SELFPAY ==
--- NOTE | 2025-05-16 08:21 | OPREHPOC ---
Outpatient Therapy Plan of Care This is a Multidisciplinary Plan of Care that may contain components documented by all disciplines (PT, OT, and ST.) PT Problem 1 PT Problem #1 Knowledge Deficit PT Goal 1 Goal / Goal Update independent and compliant with HEP Target Visit 4 PT Problem 2 PT Problem #2 Pain PT Goal 1 Goal / Goal Update patient to report no more than 2/10 pain in the R hip in the last week Target Visit 8 PT Problem 3 PT Problem #3 Impaired Strength PT Goal 1 Goal / Goal Update 5/5 bilateral gross LE strength Target Visit 8 PT Problem 4 PT Problem #4 Impaired Range of Motion PT Goal 1 Goal / Goal Update 100 degrees or better active R hip flex Target Visit 8 PT Problem 5 PT Problem #5 Impaired Functional Mobility PT Goal 1 Goal / Goal Update LEFS to display 25% or less functional deficits patient to ambulate with normal gait mechanics and no antalgia develop an extensive HEP Target Visit 8
--- NOTE | 2025-05-16 08:22 | PTOPEVAL1 ---
Assessment and note entered by JT File, PT Evaluation Information Assessment Status Evaluation ICD-10 Condition Codes (PT) Pain in right hip M25.551 Onset 07/08/2024 Subjective Information patient has been having pain in the R groin for the past 6 months. he reports he thought it was a hernia or mm injury to the R hip intially, but it was not going away. he reports he had MRI and CT of the R hip that showed osteonecrosis of the R hip. he reports he was prescribed an anti- inflammatory and told to see PT. he reports he has the most pain with increased walking (more than 2000 steps a day). he reports he then will limp and it will flare up the lower back as well. Reported Pain Level Pain Score 6: Self Report Assessment PT Clinical Summary mr. dietrich presents to skilled PT services for evaluation and treatment of R hip pain. he presents today with decreased rom, R groin pain, and limited weight bearing functional activities due to pain. he presents with signs and symptoms consistent with R hip arthritis. patient will benefit from continued skilled PT to improve rom, strength, and functional activity endurance, but will likely need hip replacement to alleviate all pain and symptoms in the R hip. Plan of Care Interventions Electrical Stimulation,Gait Training,Hot Pack/Cold Pack,Neuro Re-education,Patient/Caregiver Education,Therapeutic Activities,Therapeutic Exercise PT Services Indicated Yes Treatment Frequency and 2x weekly for 8 visits Duration These treatments will address the objective and functional deficits as defined above. The patient will be advanced safely and appropriately in order for the patient to progress towards his/her prior level of function. Additional exercises will be introduced and as well as a comprehensive home exercise program upon discharge, if needed, ?to ensure carryover of functional gains achieved in the clinic. This treatment plan has been reviewed and agreement upon by the patient.
--- NOTE | 2025-05-17 08:02 | OPREHPOC ---
Outpatient Therapy Plan of Care This is a Multidisciplinary Plan of Care that may contain components documented by all disciplines (PT, OT, and ST.) PT Problem 1 PT Problem #1 Knowledge Deficit PT Goal 1 Goal / Goal Update independent and compliant with HEP Target Visit 4 Progress Met PT Problem 2 PT Problem #2 Pain PT Goal 1 Goal / Goal Update patient to report no more than 2/10 pain in the R hip in the last week Target Visit 8 Progress Not Met PT Problem 3 PT Problem #3 Impaired Strength PT Goal 1 Goal / Goal Update 5/5 bilateral gross LE strength Target Visit 8 Progress Not Met PT Problem 4 PT Problem #4 Impaired Range of Motion PT Goal 1 Goal / Goal Update 100 degrees or better active R hip flex Target Visit 8 Progress Met PT Problem 5 PT Problem #5 Impaired Functional Mobility PT Goal 1 Goal / Goal Update LEFS to display 25% or less functional deficits patient to ambulate with normal gait mechanics and no antalgia develop an extensive HEP Target Visit 8 Progress Not Met
--- NOTE | 2025-05-17 08:02 | PTOPEVAL1 ---
Assessment and note entered by Neena Hardy, PT Evaluation Information Assessment Status Discharge ICD-10 Condition Codes (PT) Pain in right hip M25.551 Onset 07/08/2024 Subjective Information Robby reports his right groin/hip pain is not changed and is getting worse. He continues to have difficulty walking more than 2,000 steps a day and will limp. He is seeing a surgeon on 06/05/25 and hopes to schedule a hip replacement surgery. Reported Pain Level Pain Score 5: Self Report Pain Score 6: Self Report Assessment PT Clinical Summary Robby Obando has completed 8 skilled PT visits for R hip pain. He continues to report constant pain in the right hip and groin that increases with walking and squatting. He is limited with walking to around 2,000 steps a day. He does demonstrate improved right hip flexion AROM but it is still painful. He continues to have limitations with right hip abduction and internal rotation AROM as well as decreased right hip strength and impaired gait. He met 2 out of 7 goals. He is being discharged to an independent [facility]. Plan of Care Interventions Neuro Re-education,Patient/Caregiver Education, Therapeutic Activities,Therapeutic Exercise PT Services Indicated No Treatment Frequency and Discharge Duration These treatments will address the objective and functional deficits as defined above. The patient will be advanced safely and appropriately in order for the patient to progress towards his/her prior level of function. Additional exercises will be introduced and as well as a comprehensive home exercise program upon discharge, if needed, ?to ensure carryover of functional gains achieved in the clinic. This treatment plan has been reviewed and agreement upon by the patient.
== END 2025-05-17 20:00 | disposition home or self-care (01) ==
LOC: CHSPT 08:50
PROVIDERS: Visit Provider Orthopaedic Surgery
DX: M25.551 Pain in right hip (principal)
CPT/HCPCS: 97110; 97112; 97150; 97161; 97530